=== PATIENT | male | born 1965 | race Two or more races ===

== ENCOUNTER → 2025-01-14 | Outpatient (CLI) | payer OTHER, SELFPAY ==
--- NOTE | 2025-01-14 12:39 | XR_ITS ---
Examination: CT brain head without contrast. 2-D sagittal coronal reconstructions Date and time of exam:January 14, 2025 1250 hours INDICATIONS: Concussion 5 days ago with persistent headaches CTDI: vol (mGy):56.4 DLP: (mGycm):1154 Technique: Multiple CT axial sections of the brain have been obtained, 5 mm slice thickness. Contrast has not been administered. 2-D sagittal, coronal reconstructions have been obtained Low dose protocols were performed. One or more of the following dose reduction techniques were used; automated exposure control, adjustment of the mA and/or KV according to patient size, use of iterative reconstruction technique. Findings: No significant ventricular enlargement. Intra-axial or extra-axial hemorrhage density is not seen. No mass effect or midline shift Basal cisterns are not remarkable. Fourth ventricle is midline. Cranial vault intact. Significant right maxillary sinusitis Impression: Negative for acute hemorrhage, mass effect or midline shift
--- NOTE | 2025-01-14 13:03 | XR_ITS ---
EXAMINATION: Cervical spine, 5 views Technique: Cervical spine AP, AP odontoid, lateral, bilateral obliques, 5 views Exam date and time: January 14, 2025 1306 hours Comparison May 18, 2015 INDICATIONS: Injury to the neck 4 days ago, neck pain FINDINGS: Adequate alignment cervical vertebral bodies No cervical fracture Early degenerative disc disease C5-C6, C6-C7 with moderate bilateral neural foraminal stenosis at C5-C6 Intact odontoid Impression: Early degenerative disc disease C5-C6, C6-C7 mild
== END | disposition home or self-care (01) ==
LOC: CCTX 12:24
PROVIDERS: PCP Family Medicine; Referring Provider Family Medicine; Visit Provider Family Medicine
DX: S06.0X0A Concussion without loss of consciousness, initial encounter (principal); S13.4XXA Sprain of ligaments of cervical spine, initial encounter; X58.XXXA Exposure to other specified factors, initial encounter; M50.322 Other cervical disc degeneration at C5-C6 level
CPT/HCPCS: 70450; 72050

== ENCOUNTER → 2025-03-30 | Outpatient (CLI) | payer BC, SELFPAY ==
[2025-03-30 16:42] LABS: Glucose Estimated Average 117 mg/dL (80-131); Hemoglobin A1C 5.7 % Hgb (4.8-6.0)
[2025-03-30 16:45] LABS: Prostate Specific Antigen 1.05 ng/mL (0-4.00)
[2025-04-06 06:30] LABS: Estradiol, Ultrasensitive* 23 pg/mL (< OR = 29); Testosterone,Total* 771 ng/dL (250-1100)
== END | disposition home or self-care (01) ==
PROVIDERS: PCP Family Medicine
DX: E29.1 Testicular hypofunction (principal)
CPT/HCPCS: 36415; 82670; 83036; 84153; 84403